=== PATIENT | male | born 1950 | race Hispanic/Latino ===

== ENCOUNTER → 2023-06-07 | Outpatient (CLI) | payer OTHER, MEDICARE ==
[~2023-06-07] MED LIST: AEC81 PO; ATOR10 PO; CARV6.25 PO; CLOP75TA32 PO; LISI40TA9 PO; METF-526 PO; OXYB5TAB20 PO; PANT40TA54 PO; PROC-3 PO; TAMS-1 PO
== END | disposition home or self-care (01) ==
LOC: LAB 09:57
PROVIDERS: ATTEND Family Medicine
DX: M16.11 Unilateral primary osteoarthritis, right hip (principal)
CPT/HCPCS: 73502